=== PATIENT | male | born 1955 | race Caucasian/White ===

== ENCOUNTER → 2019-03-03 | Outpatient (CLI) | payer MEDICARE ==
--- NOTE | 2019-03-04 10:24 | MRI ---
MRI right knee without contrast INDICATION: Knee pain bilateral chronic TECHNIQUE: Noncontrast MR imaging right knee standard protocol FINDINGS: Multilocular moderate Jack's cyst with internal debris/synovitis. Mild lateral patellar tracking with grade 4 chondral fissuring at the junction of the patellar apex and lateral facet extending into the inferior lateral patellar facet. Mild chondrosis of the trochlea. Mild patellofemoral osteophyte formation. Moderate joint effusion with synovitis and debris diffusely. Undulation within interstitial increased signal indicating mucoid degeneration/ganglion of the ACL from previous interstitial partial tear. PCL is intact. Diffuse macerated medial meniscal tear with horizontal oblique component in the posterior horn and body with partial medial extrusion and moderate volume loss. Fairly diffuse mixed grade 3-4 chondrosis throughout the medial tibiofemoral compartment. There is less pronounced chondrosis and lateral tibiofemoral compartment up to grade 3 in the lateral femoral condyle. Degenerative change lateral meniscus most prominent in the anterior horn. There is an intra-articular body posterior medial recess sagittal series 401 image 13. Several bodies in the Jack's cyst area. No extensor rupture. Joint space narrowing nearly [id number] medial tibiofemoral compartment. 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
--- NOTE | 2019-03-04 10:41 | MRI ---
MRI left knee without contrast INDICATION: Knee pain chronic bilateral TECHNIQUE: Noncontrast MR imaging left knee FINDINGS: Moderate joint effusion with diffuse synovitis/debris. Large Jack's cyst with multiple loculations and septations and debris/synovitis. Multifocal grade 4 chondral fissuring throughout the patella with subchondral edema and cystic change. Small area of chondral delamination in the apex lateral facet junction axial series 301 image 29. Extensor tendons are intact. Cruciate ligaments are intact. Horizontal tear throughout the medial meniscus with moderate volume loss. Free edge and undersurface extension throughout with partial medial extrusion. There is an osteophyte from the anterior intercondylar region tibial plateau midline. Extensive grade 4 chondrosis throughout the medial tibiofemoral compartment with joint space narrowing subchondral edema and cystic change indicating developing osteoarthrosis. IMPRESSION: Advanced chondrosis with joint space narrowing medial tibiofemoral compartment indicating developing osteoarthrosis with extensive medial meniscal tear and partial extrusion Large Jack's cyst with synovitis/debris Multifocal grade 4 chondrosis in the patella Joint effusion with diffuse synovitis Electronically signed by: Bobby Delcid MD 03/04/2019 10:38 AM CDT
== END ==
LOC: MRI 10:51
PROVIDERS: ATTEND Family Medicine
DX: M17.0 Bilateral primary osteoarthritis of knee (principal); S83.281A Other tear of lateral meniscus, current injury, right knee, initial encounter; S83.511A Sprain of anterior cruciate ligament of right knee, initial encounter; M71.21 Synovial cyst of popliteal space [Baker], right knee; M71.22 Synovial cyst of popliteal space [Baker], left knee; M65.862 Other synovitis and tenosynovitis, left lower leg

== ENCOUNTER → 2019-10-25 | Outpatient (CLI) | payer MEDICARE ==
--- NOTE | 2019-10-25 20:24 | US ---
EXAM DESCRIPTION: Venous,Lower Extremity RT: ULTRASOUND. CLINICAL HISTORY: cellulitis of right lower limb COMPARISON: None Available. TECHNIQUE: Bourne-scale and doppler sonographic evaluation of the deep venous system of the right lower extremity. FINDINGS: Doppler evaluation shows normal color flow and normal phasicity and augmentation of the right common femoral vein, femoral vein, popliteal vein, greater saphenous vein, junction with the CFV. Also normal color flow and normal phasicity and augmentation of the peroneal, and posterior tibial vein. The right lower extremity deep veins were completely compressible; normal occlusion with transducer pressure. Bourne-scale survey showed no echogenic thrombus within these veins. Irregular fluid collection in the popliteal fossa with slightly thickened akhtar measuring 3.0 x 0.8 x 0.8 cm. Nonvascular. Posterior acoustic shadowing and artifact than tall orientation. IMPRESSION: 1. Duplex ultrasound evaluation of the right lower extremity deep venous system showing no evidence of thrombosis. 2. 3 cm Jack's cyst in the right popliteal fossa. Electronically signed by: Brice Bishop MD 10/25/2019 8:23 PM [facility]
== END ==
LOC: US 13:15
PROVIDERS: ATTEND Family Medicine
DX: L03.115 Cellulitis of right lower limb (principal); M71.21 Synovial cyst of popliteal space [Baker], right knee; E29.9 Testicular dysfunction, unspecified; I10 Essential (primary) hypertension

== ENCOUNTER → 2020-08-29 | Outpatient (CLI) | payer MEDICARE | LOC: GMAM 10:26 | PROVIDERS: ATTEND Family Medicine | DX: Z12.5 Encounter for screening for malignant neoplasm of prostate (principal); E29.9 Testicular dysfunction, unspecified; I10 Essential (primary) hypertension | CPT/HCPCS: 84403; G0103 ==